=== PATIENT | female | born 1995 | race Caucasian/White ===

== ENCOUNTER 2019-12-16 17:30 | Outpatient (REF) | payer OTHER, SELFPAY | END 2019-12-16 17:31 | disposition home or self-care (01) | LOC: HO.LAB 17:30 | PROVIDERS: PCP Internal Medicine; Visit Provider Internal Medicine | DX: Z20.828 Contact with and (suspected) exposure to other viral communicable diseases (principal) | CPT/HCPCS: U0003 ==

== ENCOUNTER 2020-01-09 17:46 | Outpatient (REF) | payer OTHER, SELFPAY | END 2020-01-09 17:47 | disposition home or self-care (01) | LOC: HO.LAB 17:46 | PROVIDERS: PCP Internal Medicine; Visit Provider Internal Medicine | DX: Z20.828 Contact with and (suspected) exposure to other viral communicable diseases (principal) | CPT/HCPCS: C9803; U0003 ==

== ENCOUNTER 2020-03-20 15:59 | Outpatient (REF) | payer OTHER, SELFPAY | END 2020-03-20 16:00 | disposition home or self-care (01) | LOC: HO.LAB 15:59 | PROVIDERS: Visit Provider Nurse Practitioner Family | DX: J02.9 Acute pharyngitis, unspecified (principal); Z20.822 Contact with and (suspected) exposure to COVID-19 | CPT/HCPCS: 36415; U0003; U0005 ==

== ENCOUNTER 2020-07-10 08:40 | Outpatient (REF) | payer OTHER, SELFPAY ==
[2020-07-10 13:44] LABS: CT PCR NOT DETECTED (Not Detect.); NG PCR NOT DETECTED (Not Detect.)
== END 2020-07-10 08:41 | disposition home or self-care (01) ==
LOC: HO.LAB 08:40
PROVIDERS: PCP Internal Medicine; Visit Provider Advanced Practice Midwife
DX: Z01.419 Encounter for gynecological examination (general) (routine) without abnormal findings (principal); E28.2 Polycystic ovarian syndrome; G43.909 Migraine, unspecified, not intractable, without status migrainosus; J30.2 Other seasonal allergic rhinitis; Z20.2 Contact with and (suspected) exposure to infections with a predominantly sexual mode of transmission
CPT/HCPCS: 87491; 87591; 88142

== ENCOUNTER 2020-10-25 14:17 | Outpatient (REF) | payer OTHER, SELFPAY ==
[2020-10-25 16:55] LABS: D Dimer 212 NG/ML
[2020-10-26 04:37] LABS: Syphilis Screen Nonreactive (Nonreactive)
[2020-10-26 05:02] LABS: HBc Num1 0.27 S/CO (0.00-0.79); HIV AB/AG Nonreactive (Nonreactive); HIV Num 1 0.06 S/CO (0.00-0.99); Hepatitis B Core Antibody Nonreactive (Nonreactive); ~HepC Num1 0.18 S/CO (0.00-0.79); ~Hepatitis C Antibody Nonreactive (Nonreactive)
== END 2020-10-25 14:18 | disposition home or self-care (01) ==
LOC: HO.HMGCLDS 14:17
PROVIDERS: Advanced Practice Midwife; PCP Internal Medicine; Visit Provider Hospitalist
DX: M79.89 Other specified soft tissue disorders (principal); Z20.2 Contact with and (suspected) exposure to infections with a predominantly sexual mode of transmission
CPT/HCPCS: 36415; 85379; 86704; 86780; 86803; 87389

== ENCOUNTER → 2020-11-12 08:07 | Outpatient (BNVA) | payer OTHER, SELFPAY | PROVIDERS: PCP Internal Medicine; Visit Provider Advanced Practice Midwife | DX: Z51.81 Encounter for therapeutic drug level monitoring (principal); Z30.41 Encounter for surveillance of contraceptive pills | CPT/HCPCS: 99212 ==

== ENCOUNTER → 2020-12-07 12:15 | Outpatient (BNVA) | payer OTHER, SELFPAY | PROVIDERS: PCP Internal Medicine; Visit Provider Advanced Practice Midwife ==

== ENCOUNTER → 2020-12-19 15:28 | Outpatient (BNVA) | payer OTHER, SELFPAY | PROVIDERS: PCP Internal Medicine; Visit Provider Advanced Practice Midwife ==

== ENCOUNTER → 2020-12-20 11:34 | Outpatient (BNVA) | payer OTHER, SELFPAY | PROVIDERS: PCP Internal Medicine; Visit Provider Advanced Practice Midwife ==

== ENCOUNTER → 2021-03-06 08:45 | Outpatient (BNVA) | payer OTHER, SELFPAY | PROVIDERS: PCP Internal Medicine; Visit Provider Advanced Practice Midwife | DX: O99.210 Obesity complicating pregnancy, unspecified trimester (principal); E66.01 Morbid (severe) obesity due to excess calories; O99.280 Endocrine, nutritional and metabolic diseases complicating pregnancy, unspecified trimester; E28.2 Polycystic ovarian syndrome; Z3A.00 Weeks of gestation of pregnancy not specified | CPT/HCPCS: 81025 ==

== ENCOUNTER 2021-03-12 15:16 | Outpatient (REF) | payer OTHER, SELFPAY ==
--- NOTE | ~2021-03-12 | US_ITS ---
EXAMINATION: US OBSTETRICAL ULTRASOUND CLINICAL INFORMATION: History of PCOS and irregular periods. COMPARISON: None LMP: 01/18/2021 Gestational age by maternal dates is 7 weeks and 4 days Estimated date of delivery by maternal dates is 10/25/2021 TECHNIQUE: Routine imaging of the pelvis was performed. FINDINGS: There is a single, intrauterine gestational sac with a visible yolk sac, embryo/fetus, and cardiac activity. There is no significant subchorionic hemorrhage or hematoma. There is trace fluid within the cervical endometrial canal. HR: 160 beats per minute. CRL (crown rump length): 1.40 cm (7 weeks and 5 days +/- 4 days). NAHUM (estimated date of delivery): 10/24/2021 +/- 4 days. MATERNAL ADNEXA: The right maternal ovary measures 4.7 x 3.2 x 4.3 cm. There is a small corpus luteal cyst measuring 2.9 x 3.0 x 2.7 cm. The left maternal ovary measures 2.5 x 1.0 x 2.2 cm. No focal lesion is seen. There is no significant maternal adnexal mass. No maternal pelvic ascites. US/US OB pelvic and transvaginal IMPRESSION: 1. Single, intrauterine gestation with ultrasound gestational age of 7 weeks and 5 days +/- 4 days. 2. Estimated date of delivery is 10/24/2021 +/- 4 days. 3. No maternal adnexal mass or pelvic ascites.
== END 2021-03-12 15:17 | disposition home or self-care (01) ==
LOC: HO.US 15:16
PROVIDERS: PCP Advanced Practice Midwife; Visit Provider Advanced Practice Midwife
DX: Z34.91 Encounter for supervision of normal pregnancy, unspecified, first trimester (principal); Z3A.01 Less than 8 weeks gestation of pregnancy
CPT/HCPCS: 76801; 76817

== ENCOUNTER → 2021-03-18 15:27 | Outpatient (BNVA) | payer OTHER, SELFPAY | PROVIDERS: Visit Provider Advanced Practice Midwife ==

== ENCOUNTER 2022-01-15 11:30 | Outpatient (REF) | payer OTHER, SELFPAY ==
[2022-01-15 12:20] LABS: Influenza A PCR NEGATIVE (Negative); Influenza B PCR NEGATIVE (Negative); Resp Syncy Virus RNA Qual PCR NEGATIVE (Negative); SARS COV2 PCR INHOUSE NEGATIVE (Negative)
== END 2022-01-15 11:31 | disposition home or self-care (01) ==
LOC: HO.LNP 11:30
PROVIDERS: Visit Provider Nurse Practitioner Family
DX: Z20.822 Contact with and (suspected) exposure to COVID-19 (principal); J06.9 Acute upper respiratory infection, unspecified
CPT/HCPCS: 0241U